=== PATIENT | male | born 1975 | race Caucasian/White ===

== ENCOUNTER 2023-11-04 16:59 | Emergency (ER) | payer OTHER ==
[~2023-11-04] VITALS: Ht 185.4 cm; Wt 127.3 kg
[2023-11-04] MEDS ORDERED: HYDROmorphone inj. 0.5 MG/0.5 ML DISP.SYRIN IM ONE (18:05)
[2023-11-04] MEDS ORDERED: BUPIVAcaine 0.5% W/EPI /PF 30ml vial IJ ONE (18:15)
[2023-11-04] MEDS ORDERED: bacitracin 15gm ointment TP ONE (20:05)
[2023-11-04] MEDS ORDERED: CEPH-585 PO (20:15)
[2023-11-04] MEDS ORDERED: cephalexin 500mg capsule PO ONE (20:30)
[2023-11-04 20:33] VITALS: BP 120/82; PULSE 58; RESP 18; TEMP 98; O2SAT 99
== END 2023-11-04 20:36 | disposition home or self-care (01) ==
LOC: ER 17:00
DX: S62.637A Displaced fracture of distal phalanx of left little finger, initial encounter for closed fracture (principal); W23.0XXA Caught, crushed, jammed, or pinched between moving objects, initial encounter; Y93.89 Activity, other specified; Y92.89 Other specified places as the place of occurrence of the external cause; Y99.8 Other external cause status
CPT/HCPCS: 12002; 73140; 96372; 99283; J1170; A6258; A6449